=== PATIENT | male | born 1960 | race Caucasian/White ===

== ENCOUNTER 2017-10-19 11:35 | Inpatient (IN) | payer OTHER ==
[~2017-10-19] VITALS: Ht 185.4 cm; Wt 113.2 kg
[~2017-10-19 11:35] MED LIST changes: -AMLO5 PO; -ATOR40TA PO; -LOSA50 PO
[2017-10-19 12:04] LABS: BASOPHILS ABSOLUTE AUTO 0.04 K/mm3 (0.00-0.23); BASOPHILS PERCENT AUTO 1 % (0-2); EOSINOPHILS PERCENT AUTO 5 % (0-6); Hematocrit 48.8 % (37.0-53.0); Hemoglobin 15.9 g/dL (13.5-17.5); IMMATURE GRAN ABSOLUTE AUTO 0.01 K/mm3 (0.00-0.10); IMMATURE GRAN PERCENT AUTO 0 % (0-1); LYMPHOCYTES ABSOLUTE AUTO 1.88 K/mm3 (0.84-5.20); LYMPHOCYTES PERCENT AUTO 33 % (21-46); MONOCYTES ABSOLUTE AUTO 0.58 K/mm3 (0.16-1.47); MONOCYTES PERCENT AUTO 10 % (4-13); Mean Corpuscular HGB 29.8 pg (26.0-34.0); Mean Corpuscular HGB Conc 32.6 g/dL (31.5-36.5); Mean Corpuscular Volume 92 fL (80-100); Mean Platelet Volume 9.1 fL (9.1-12.4); NEUTROPHILS ABSOLUTE AUTO 2.92 K/mm3 (1.96-9.15); NEUTROPHILS PERCENT AUTO 51 % (41-73); Platelet Count 205 K/mm3 (150-400); RDW Coefficient Variation 12.3 % (11.7-14.2); RDW Standard Deviation 41.5 fL (35.1-46.3); Red Blood Cell Count 5.33 M/mm3 (4.30-5.90); White Blood Cell Count 5.73 K/mm3 (4.00-11.30)
[2017-10-19 12:21] LABS: Alanine Aminotransfer (ALT/SGP 52 U/L (12-78); Albumin, Blood 4.2 g/dL (3.4-5.0); Albumin/Globulin Ratio 1.1 (0.8-1.8); Alk Phos 62 U/L (50-136); Anion Gap 8 mmol/L (6-16); Aspartate Aminotrans (AST/SGOT 43 U/L (12-37); Bilirubin, Total 1.6 mg/dL (0.1-1.0); Blood Urea Nitrogen 13 mg/dL (8-24); Bun/Creatinine Ratio 14.1 (12.0-20.0); CO2, Blood 26 mmol/L (21-32); Calcium, Blood 9.3 mg/dL (8.5-10.1); Chloride, Blood 106 mmol/L (98-108); Creatinine, Blood 0.93 mg/dL (0.60-1.20); Globulin, Blood 3.9 g/dL (2.2-4.0); Glomerular Filtration Rate >60 (60-); Glucose, Blood 105 mg/dL (70-99); Sodium, Blood 140 mmol/L (136-145); Total Protein, Blood 8.1 g/dL (6.4-8.2)
[2017-10-19 13:28] LABS: International Normalized Ratio 0.98; Prothrombin Time Results 10.2 Sec (9.7-11.5)
[2017-10-20 03:51] LABS: Hematocrit 44.4 % (37.0-53.0); Hemoglobin 14.3 g/dL (13.5-17.5); Mean Corpuscular HGB 29.7 pg (26.0-34.0); Mean Corpuscular HGB Conc 32.2 g/dL (31.5-36.5); Mean Corpuscular Volume 92 fL (80-100); Mean Platelet Volume 9.3 fL (9.1-12.4); Platelet Count 179 K/mm3 (150-400); RDW Coefficient Variation 12.4 % (11.7-14.2); RDW Standard Deviation 42.5 fL (35.1-46.3); Red Blood Cell Count 4.82 M/mm3 (4.30-5.90); White Blood Cell Count 7.38 K/mm3 (4.00-11.30)
[2017-10-20 04:12] LABS: Albumin, Blood 3.6 g/dL (3.4-5.0); Anion Gap 7 mmol/L (6-16); Blood Urea Nitrogen 14 mg/dL (8-24); Bun/Creatinine Ratio 15.4 (12.0-20.0); CHOL/HDL RATIO 4.9; CO2, Blood 24 mmol/L (21-32); Calcium, Blood 8.7 mg/dL (8.5-10.1); Chloride, Blood 109 mmol/L (98-108); Cholesterol 173 mg/dL (50-200); Creatinine, Blood 0.91 mg/dL (0.60-1.20); Glomerular Filtration Rate >60 (60-); Glucose, Blood 130 mg/dL (70-99); HDL Cholesterol 35 mg/dL (>39); LDL/HDL RATIO 3.2; Low Density Lipoprotein Chol 111 mg/dL (0-110); Magnesium, Blood 2.3 mg/dL (1.6-2.4); Phosphorus, Blood 2.4 mg/dL (2.5-4.9); Sodium, Blood 140 mmol/L (136-145); Triglycerides 137 mg/dL (30-160); Very Low Density Lipoprot Chol 27 mg/dL (6-32)
[2017-10-20] MEDS ORDERED: AMLO5 PO (10:04)
[2017-10-20] MEDS ORDERED: ATOR40TA PO (10:05)
[2017-10-20] MEDS ORDERED: LOSA50 PO (10:05)
== END 2017-10-20 10:25 | disposition home or self-care (01) | DRG 282 ==
LOC: ER 11:35 → ICUE 14:05 → PCU 14:05 → ICUW 15:50 → ICUE 23:00
PROVIDERS: Internal Medicine; Internal Medicine Cardiovascular Disease; Physician Assistant
PROC: 4A023N7 Measurement of Cardiac Sampling and Pressure, Left Heart, Percutaneous Approach (ICD-10-PCS; principal; 2017-10-19)
PROC: B2111ZZ Fluoroscopy of Multiple Coronary Arteries using Low Osmolar Contrast (ICD-10-PCS; 2017-10-19)
PROC: B2151ZZ Fluoroscopy of Left Heart using Low Osmolar Contrast (ICD-10-PCS; 2017-10-19)
DX: I21.4 Non-ST elevation (NSTEMI) myocardial infarction (principal); I11.9 Hypertensive heart disease without heart failure; E78.00 Pure hypercholesterolemia, unspecified; F17.210 Nicotine dependence, cigarettes, uncomplicated
CPT/HCPCS: 36415; 71046; 80053; 80061; 80069; 83036; 83735; 84484; 85025; 85027; 85610; 85730; 86850; 86900; 86901; 93005; 93010; 93306; 93458; 96365; 99152; 99153; 99285; C1769; C1894; J1644; J2250; J2405; J3010; J7030; J7060; Q9967

== ENCOUNTER → 2017-10-19 | Outpatient (CLI) | payer OTHER ==
[~2017-10-19] MED LIST: AMLO5 PO; ATOR40TA PO; Adult Low Dose81 MG PO; BP MED; CYCL10 PO; Garlic1 EACH PO; HYDCHL25 PO; HYDR-86; HYDR1TAB94 PO; Hydrochloroth12.5 MG; IBUP600 PO; LISI20 PO; LOSA50 PO; Lisinopril2.5 MG; NAPR500 PO; PRED20 PO; SULI150 PO; SULINDAC; TRAM50 PO
[2017-10-19 10:48] LABS: BASOPHILS ABSOLUTE AUTO 0.04 K/mm3 (0.00-0.23); BASOPHILS PERCENT AUTO 1 % (0-2); EOSINOPHILS ABSOLUTE AUTO 0.31 K/mm3 (0.00-0.68); EOSINOPHILS PERCENT AUTO 6 % (0-6); Hematocrit 48.5 % (37.0-53.0); Hemoglobin 16.5 g/dL (13.5-17.5); IMMATURE GRAN ABSOLUTE AUTO 0.01 K/mm3 (0.00-0.10); IMMATURE GRAN PERCENT AUTO 0 % (0-1); LYMPHOCYTES ABSOLUTE AUTO 1.65 K/mm3 (0.84-5.20); LYMPHOCYTES PERCENT AUTO 32 % (21-46); MONOCYTES ABSOLUTE AUTO 0.53 K/mm3 (0.16-1.47); MONOCYTES PERCENT AUTO 10 % (4-13); Mean Corpuscular HGB 30.7 pg (26.0-34.0); Mean Corpuscular Volume 90 fL (80-100); Mean Platelet Volume 9.1 fL (9.1-12.4); NEUTROPHILS ABSOLUTE AUTO 2.62 K/mm3 (1.96-9.15); NEUTROPHILS PERCENT AUTO 51 % (41-73); Platelet Count 213 K/mm3 (150-400); RDW Coefficient Variation 12.4 % (11.7-14.2); RDW Standard Deviation 40.7 fL (35.1-46.3); Red Blood Cell Count 5.37 M/mm3 (4.30-5.90); White Blood Cell Count 5.16 K/mm3 (4.00-11.30)
[2017-10-19 11:07] LABS: Alanine Aminotransfer (ALT/SGP 56 U/L (12-78); Albumin, Blood 4.4 g/dL (3.4-5.0); Albumin/Globulin Ratio 1.2 (0.8-1.8); Alk Phos 66 U/L (40-126); Anion Gap 9 mmol/L (6-16); Aspartate Aminotrans (AST/SGOT 40 U/L (12-37); Bilirubin, Total 1.8 mg/dL (0.1-1.0); Blood Urea Nitrogen 14 mg/dL (8-24); Bun/Creatinine Ratio 13.1 (12.0-20.0); CO2, Blood 28 mmol/L (21-32); Calcium, Blood 9.7 mg/dL (8.5-10.1); Chloride, Blood 102 mmol/L (98-108); Creatinine, Blood 1.07 mg/dL (0.60-1.20); Globulin, Blood 3.7 g/dL (2.2-4.0); Glomerular Filtration Rate >60 (60-); Glucose, Blood 116 mg/dL (70-99); Potassium, Blood 3.4 mmol/L (3.5-5.5); Sodium, Blood 139 mmol/L (136-145); Total Protein, Blood 8.1 g/dL (6.4-8.2)
[2017-10-19 11:13] LABS: Troponin I 0.887 ng/mL (0.000-0.040)
== END | disposition home or self-care (01) ==
LOC: LAB EV 10:44
PROVIDERS: Physician Assistant
DX: R07.9 Chest pain, unspecified (principal)
CPT/HCPCS: 80053; 83690; 84484; 85025

== ENCOUNTER → 2020-01-19 | Outpatient (CLI) | payer OTHER ==
[~2020-01-19] MED LIST changes: +AMLO5 PO; +ATOR40TA PO; +LOSA50 PO
[2020-01-19 11:58] LABS: BASOPHILS ABSOLUTE AUTO 0.04 K/mm3 (0.00-0.23); BASOPHILS PERCENT AUTO 1 % (0-2); EOSINOPHILS ABSOLUTE AUTO 0.36 K/mm3 (0.00-0.68); EOSINOPHILS PERCENT AUTO 6 % (0-6); Hemoglobin 15.4 g/dL (13.5-17.5); IMMATURE GRAN ABSOLUTE AUTO 0.02 K/mm3 (0.00-0.10); IMMATURE GRAN PERCENT AUTO 0 % (0-1); LYMPHOCYTES PERCENT AUTO 26 % (21-46); MONOCYTES ABSOLUTE AUTO 0.59 K/mm3 (0.16-1.47); MONOCYTES PERCENT AUTO 9 % (4-13); Mean Corpuscular HGB 30.3 pg (26.0-34.0); Mean Corpuscular HGB Conc 32.1 g/dL (31.5-36.5); Mean Corpuscular Volume 94 fL (80-100); Mean Platelet Volume 9.5 fL (9.1-12.4); NEUTROPHILS ABSOLUTE AUTO 3.75 K/mm3 (1.96-9.15); NEUTROPHILS PERCENT AUTO 58 % (41-73); Platelet Count 249 K/mm3 (150-400); RDW Coefficient Variation 12.3 % (11.7-14.2); RDW Standard Deviation 42.9 fL (35.1-46.3); Red Blood Cell Count 5.09 M/mm3 (4.30-5.90); White Blood Cell Count 6.46 K/mm3 (4.00-11.30)
[2020-01-19 12:14] LABS: Alanine Aminotransfer (ALT/SGP 63 U/L (12-78); Albumin, Blood 4.1 g/dL (3.4-5.0); Albumin/Globulin Ratio 1.1 (0.8-1.8); Alk Phos 72 U/L (50-136); Anion Gap 3 mmol/L (6-16); Aspartate Aminotrans (AST/SGOT 36 U/L (12-37); Bilirubin, Direct 0.2 mg/dL (0.0-0.3); Bilirubin, Total 1.2 mg/dL (0.1-1.0); Blood Urea Nitrogen 12 mg/dL (8-24); CO2, Blood 30 mmol/L (21-32); Chloride, Blood 109 mmol/L (98-108); Creatinine, Blood 0.92 mg/dL (0.60-1.20); Globulin, Blood 3.9 g/dL (2.2-4.0); Glomerular Filtration Rate >60 (60-); Glucose, Blood 102 mg/dL (70-99); Potassium, Blood 4.1 mmol/L (3.5-5.5); Sodium, Blood 142 mmol/L (136-145)
[2020-01-19 12:20] LABS: International Normalized Ratio 0.91; Prothrombin Time Results 9.8 Sec (9.7-11.5)
== END | disposition home or self-care (01) ==
LOC: LAB SHORT 11:10 → LAB 11:10
PROVIDERS: Nurse Practitioner
DX: M79.89 Other specified soft tissue disorders (principal)
CPT/HCPCS: 80053; 82248; 85025; 85610; 85730

== ENCOUNTER 2021-11-06 10:10 | Emergency (ER) | payer OTHER ==
[~2021-11-06] VITALS: Ht 185.4 cm; Wt 106.6 kg
[2021-11-06] MEDS ORDERED: JANTOVEN5 M2 PO (11:01)
== END 2021-11-06 11:56 | disposition home or self-care (01) ==
LOC: ER 10:10
DX: R07.81 Pleurodynia (principal); R07.2 Precordial pain; E11.9 Type 2 diabetes mellitus without complications; I10 Essential (primary) hypertension; Z79.899 Other long term (current) drug therapy
CPT/HCPCS: 71046; 99283-25

== ENCOUNTER 2021-11-25 17:13 | Inpatient (IN) | payer OTHER ==
[~2021-11-25] VITALS: Ht 185.4 cm; Wt 110.0 kg
[~2021-11-25 17:13] MED LIST changes: +JANTOVEN5 M2 PO
[2021-11-25 18:22] LABS: BASOPHILS ABSOLUTE AUTO 0.03 K/mm3 (0.00-0.23); BASOPHILS PERCENT AUTO 0 % (0-2); EOSINOPHILS ABSOLUTE AUTO 0.04 K/mm3 (0.00-0.68); EOSINOPHILS PERCENT AUTO 0 % (0-6); Hematocrit 50.5 % (37.0-53.0); Hemoglobin 16.5 g/dL (13.5-17.5); IMMATURE GRAN ABSOLUTE AUTO 0.02 K/mm3 (0.00-0.10); IMMATURE GRAN PERCENT AUTO 0 % (0-1); LYMPHOCYTES ABSOLUTE AUTO 1.52 K/mm3 (0.84-5.20); LYMPHOCYTES PERCENT AUTO 15 % (21-46); MONOCYTES ABSOLUTE AUTO 1.04 K/mm3 (0.16-1.47); MONOCYTES PERCENT AUTO 10 % (4-13); Mean Corpuscular HGB 30.3 pg (26.0-34.0); Mean Corpuscular HGB Conc 32.7 g/dL (31.5-36.5); Mean Corpuscular Volume 93 fL (80-100); NEUTROPHILS PERCENT AUTO 75 % (41-73); Platelet Count 249 K/mm3 (150-400); RDW Coefficient Variation 12.5 % (11.7-14.2); RDW Standard Deviation 42.8 fL (35.1-46.3); Red Blood Cell Count 5.44 M/mm3 (4.30-5.90); White Blood Cell Count 10.45 K/mm3 (4.00-11.30)
[2021-11-25 18:48] LABS: International Normalized Ratio 2.28; Prothrombin Time Results 22.7 Sec (9.7-11.5)
[2021-11-25 19:03] LABS: Alanine Aminotransfer (ALT/SGP 39 U/L (12-78); Albumin, Blood 4.2 g/dL (3.4-5.0); Albumin/Globulin Ratio 1.1 (0.8-1.8); Alk Phos 72 U/L (50-136); Anion Gap 4 mmol/L (6-16); Aspartate Aminotrans (AST/SGOT 20 U/L (12-37); Bilirubin, Total 1.3 mg/dL (0.1-1.0); Blood Urea Nitrogen 12 mg/dL (8-24); Bun/Creatinine Ratio 14.5 (12.0-20.0); CO2, Blood 24 mmol/L (21-32); Calcium, Blood 9.7 mg/dL (8.5-10.1); Chloride, Blood 109 mmol/L (98-108); Creatinine, Blood 0.83 mg/dL (0.60-1.20); Globulin, Blood 3.8 g/dL (2.2-4.0); Glomerular Filtration Rate >60 (60-); Glucose, Blood 109 mg/dL (70-99); Potassium, Blood 3.8 mmol/L (3.5-5.5); Sodium, Blood 137 mmol/L (136-145)
--- NOTE | 2021-11-25 23:15 | NUR ---
PT ARRIVED TO FLOOR, A/O. PT REP MILD RLQ PAIN, REP PAIN ANGIE AT THIS TIME AFTER MED IN ER. PT REP PAIN X5 DAYS, DENIES N/V/D. PT ORIENTED TO ROOM/CALL LIGHT AND TX PLAN.
[2021-11-26 05:14] LABS: BASOPHILS ABSOLUTE AUTO 0.04 K/mm3 (0.00-0.23); BASOPHILS PERCENT AUTO 0 % (0-2); EOSINOPHILS ABSOLUTE AUTO 0.05 K/mm3 (0.00-0.68); EOSINOPHILS PERCENT AUTO 1 % (0-6); Hematocrit 44.5 % (37.0-53.0); Hemoglobin 14.2 g/dL (13.5-17.5); IMMATURE GRAN ABSOLUTE AUTO 0.02 K/mm3 (0.00-0.10); IMMATURE GRAN PERCENT AUTO 0 % (0-1); LYMPHOCYTES ABSOLUTE AUTO 1.46 K/mm3 (0.84-5.20); LYMPHOCYTES PERCENT AUTO 15 % (21-46); MONOCYTES ABSOLUTE AUTO 1.28 K/mm3 (0.16-1.47); MONOCYTES PERCENT AUTO 13 % (4-13); Mean Corpuscular HGB Conc 31.9 g/dL (31.5-36.5); Mean Corpuscular Volume 94 fL (80-100); Mean Platelet Volume 9.2 fL (9.1-12.4); NEUTROPHILS ABSOLUTE AUTO 6.86 K/mm3 (1.96-9.15); NEUTROPHILS PERCENT AUTO 71 % (41-73); Platelet Count 224 K/mm3 (150-400); RDW Coefficient Variation 12.7 % (11.7-14.2); RDW Standard Deviation 43.9 fL (35.1-46.3); Red Blood Cell Count 4.74 M/mm3 (4.30-5.90); White Blood Cell Count 9.71 K/mm3 (4.00-11.30)
[2021-11-26 05:26] LABS: International Normalized Ratio 2.14; Prothrombin Time Results 21.4 Sec (9.7-11.5)
[2021-11-26 05:47] LABS: Anion Gap 6 mmol/L (6-16); Blood Urea Nitrogen 20 mg/dL (8-24); Bun/Creatinine Ratio 16.7 (12.0-20.0); CO2, Blood 25 mmol/L (21-32); Chloride, Blood 110 mmol/L (98-108); Glomerular Filtration Rate >60 (60-); Glucose, Blood 135 mg/dL (70-99); Sodium, Blood 141 mmol/L (136-145)
--- NOTE | 2021-11-26 06:47 | NUR ---
PT VSS SINCE ARRIVING TO FLOOR. PT A/O, UP INDEP IN ROOM. PT MORE PAINFUL THIS AM, PAIN MGD PER EMAR. PT DENIED N/V, HAS BEEN NPO POST MIDNIGHT. AWAITING SURGICAL PLANS.
--- NOTE | 2021-11-26 13:04 | NUR ---
1235- LUNGS COURSE T/O TO AUSCULTATION. 1255- LUNGS COURSE T/O TO AUSCULATION, BUT MORE AIRFLOW NOTED POST A/D UDN.
--- NOTE | 2021-11-26 13:47 | NUR ---
11/26/21 1347 Stevie Pickens PT ON SCHEDULED ANTIBIOTICS AND RECIEVED PRIOR TO ARRIVAL TO OR.
--- NOTE | 2021-11-26 16:14 | NUR ---
VINICIO EMPTIED OF 40 CC RED FLUID WITH SMALL CLOTS PRESENT
--- NOTE | 2021-11-26 16:19 | NUR ---
PT BASELINE SATS 89-90. CURRENT SATS AT 90-91 ON 2L NC.
--- NOTE | 2021-11-26 16:20 | NUR ---
CORRECTION - PT CURRENTLY ON 4L O2 VIA NC UPON TRANSFER OUT OF PACU TO FLOOR.
--- NOTE | 2021-11-26 18:38 | NUR ---
SHIFT SUMMARY PT SPENT BEGINNING OF SHIFT IN ROOM AWAITING UPDATE FOR SURGERY. PAIN INITIALLY UNCONTROLLED W/ ORDERED MEDICATIONS. PT TO SURGERY IN EARLY AFTERNOON AND RETURNED TO ROOM AT APPROX 1630. PT HAS BEEN RESTING SINCE RETURN TO ROOM. ON 4LPM O2 VIA NC TO MAINTAIN SPO2 IN THE MID 90. PT HAS THREE SURGICAL INCISIONS, ONE WITH A TANYA DRAIN THAT SHOWED SEROSANGINEOUS DRAINAGE. OTHER TWO INCISIONS SHOW NO DRAINAGE. MEDICATIONS GIVEN ORDERED SINCE RETURN FROM SURGERY. PT TOLERATING CLEAR LIQUIDS.
--- NOTE | 2021-11-27 04:23 | NUR ---
PT IS ALERT TO SELF, SITUATION AND PLACE, DISORIENTED TO TIME. SBA TO BSC, IS IMPULSIVE AND DOES NOT USE CALL LIGHT. POST OP DAY 1 FOR LAP APPENDECTOMY, PAIN IS CONTROLLED WITH PRN NORCO AND FENTANYL. PT HAS VINICIO DRAIN THAT IS PUTTING OUT MODERATE SEROSANG DRAINAGE. PT SLEEPS BETWEEN CARES. SLEEPS 7+ HOURS THIS SHIFT. WILL CONTINUE TO MONITOR.
[2021-11-27 05:03] LABS: BASOPHILS ABSOLUTE AUTO 0.01 K/mm3 (0.00-0.23); BASOPHILS PERCENT AUTO 0 % (0-2); EOSINOPHILS PERCENT AUTO 0 % (0-6); Hematocrit 47.8 % (37.0-53.0); Hemoglobin 15.2 g/dL (13.5-17.5); IMMATURE GRAN ABSOLUTE AUTO 0.06 K/mm3 (0.00-0.10); IMMATURE GRAN PERCENT AUTO 0 % (0-1); LYMPHOCYTES ABSOLUTE AUTO 1.05 K/mm3 (0.84-5.20); LYMPHOCYTES PERCENT AUTO 7 % (21-46); MONOCYTES ABSOLUTE AUTO 1.35 K/mm3 (0.16-1.47); MONOCYTES PERCENT AUTO 10 % (4-13); Mean Corpuscular HGB 29.8 pg (26.0-34.0); Mean Corpuscular HGB Conc 31.8 g/dL (31.5-36.5); Mean Corpuscular Volume 94 fL (80-100); Mean Platelet Volume 9.6 fL (9.1-12.4); NEUTROPHILS ABSOLUTE AUTO 11.73 K/mm3 (1.96-9.15); NEUTROPHILS PERCENT AUTO 83 % (41-73); Platelet Count 242 K/mm3 (150-400); RDW Coefficient Variation 12.6 % (11.7-14.2); RDW Standard Deviation 43.6 fL (35.1-46.3)
[2021-11-27 05:16] LABS: International Normalized Ratio 1.27; Prothrombin Time Results 13.1 Sec (9.7-11.5)
[2021-11-27 05:22] LABS: Anion Gap 6 mmol/L (6-16); Blood Urea Nitrogen 17 mg/dL (8-24); Bun/Creatinine Ratio 17.8 (12.0-20.0); CO2, Blood 27 mmol/L (21-32); Calcium, Blood 9.6 mg/dL (8.5-10.1); Chloride, Blood 108 mmol/L (98-108); Creatinine, Blood 0.96 mg/dL (0.60-1.20); Glomerular Filtration Rate >60 (60-); Glucose, Blood 135 mg/dL (70-99); Potassium, Blood 3.9 mmol/L (3.5-5.5); Sodium, Blood 141 mmol/L (136-145)
--- NOTE | 2021-11-27 08:34 | NUR ---
PATIENT IS COMPLAINING OF ABD PAIN. ABD IS SLIGHTLY FIRM. ENCOURAGED PATIENT TO AMBULATE HALLWAYS TO GET MORE GAS MOVING. PATIENT REFUSED AND STATED "IF I LEAVE THIS ROOM I'M LEAVING". PATIENT IS LAYING IN BED TOLERATING PO INTAKE. PATIENT IS VOIDING AND IS INDEP. IN THE ROOM. CALL LIGHT WITHIN REACH.
--- NOTE | 2021-11-27 13:57 | NUR ---
PATIENT HAS WALKED THE HALLWAY AT LEAST ONCE AFTER HIS CAME INTO THE ROOM AND HELPED ENCOURAGE HIM. PATIENT IS VOIDING, TOLERATING PO INTAKE, AND PAIN IS MANAGED. CALL LIGHT WITHIN REACH.
[2021-11-27] MEDS ORDERED: Norco 5-325 Ta1 EACH PO (16:01)
[2021-11-27] MEDS ORDERED: AMOCLA875 PO (16:01)
--- NOTE | 2021-11-27 16:17 | NUR ---
DISCHARGE NOTE: PATIENT AND S/O WERE EDUCATED ON DISCHARGE INSTRUCTIONS. BOTH VERBALIZED UNDERSTANDING OF INSTRUCTIONS. IV WAS WNL AND TAKEN OUT. 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 PAIN IS MANAGED WITH PO PAIN MEDS. PATIENT WAS TOLERATING PO INTAKE AND VOIDING. INDEP. AMBULATIONS WITH S/O. PATIENT IS DRESSED AND HAS PERSONAL ITEMS GATHERED. S/O WHEELCHAIRED PATIENT DOWN TO HER CAR TO TAKE HIM HOME.
== END 2021-11-27 16:20 | disposition home or self-care (01) | DRG 343 ==
LOC: ER 17:13 → SURS 17:14 → ER 17:14 → SURS 17:14
PROVIDERS: Physician Assistant; ADMIT Surgery
PROC: 0WJG4ZZ Inspection of Peritoneal Cavity, Percutaneous Endoscopic Approach (ICD-10-PCS; 2021-11-26)
PROC: 30233L1 Transfusion of Nonautologous Fresh Plasma into Peripheral Vein, Percutaneous Approach (ICD-10-PCS; 2021-11-26)
PROC: 30233K1 Transfusion of Nonautologous Frozen Plasma into Peripheral Vein, Percutaneous Approach (ICD-10-PCS; 2021-11-26)
PROC: 0DTJ0ZZ Resection of Appendix, Open Approach (ICD-10-PCS; principal; 2021-11-26 12:00)
DX: K35.891 Other acute appendicitis without perforation, with gangrene (principal); E78.00 Pure hypercholesterolemia, unspecified; I10 Essential (primary) hypertension; E11.9 Type 2 diabetes mellitus without complications; F31.9 Bipolar disorder, unspecified; Z96.641 Presence of right artificial hip joint; Z96.652 Presence of left artificial knee joint; F17.200 Nicotine dependence, unspecified, uncomplicated; F43.10 Post-traumatic stress disorder, unspecified; I25.2 Old myocardial infarction; Z79.01 Long term (current) use of anticoagulants; Z79.899 Other long term (current) drug therapy; Z86.718 Personal history of other venous thrombosis and embolism; Z95.5 Presence of coronary angioplasty implant and graft
CPT/HCPCS: 36415; 36430; 80048; 80053; 82947; 85025; 85610; 86900; 86901; 88304; 93005; 93010; 94760; 96365; 96375; 99284; A9270; J1100; J1170; J1885; J2250; J2405; J2543; J2704; J3010; J7030; J7120; P9059

== ENCOUNTER 2022-08-08 07:02 | Emergency (ER) | payer OTHER ==
[~2022-08-08] VITALS: Ht 185.4 cm; Wt 104.3 kg
[~2022-08-08 07:02] MED LIST changes: +AMOCLA875 PO; +Norco 5-325 Ta1 EACH PO
[2022-08-08] MEDS ORDERED: TRAM50 PO (09:41)
[2022-08-08] MEDS ORDERED: DOCU100 PO (09:47)
== END 2022-08-08 09:59 | disposition home or self-care (01) ==
LOC: ER 07:02
DX: S30.0XXA Contusion of lower back and pelvis, initial encounter (principal); W10.9XXA Fall (on) (from) unspecified stairs and steps, initial encounter; I10 Essential (primary) hypertension; E11.9 Type 2 diabetes mellitus without complications; F17.210 Nicotine dependence, cigarettes, uncomplicated; Z79.899 Other long term (current) drug therapy; Z79.01 Long term (current) use of anticoagulants
CPT/HCPCS: 72100; 99283-25; A9270

== ENCOUNTER 2024-03-31 09:23 | Day surgery (SDC) | payer OTHER ==
[~2024-03-31] VITALS: Ht 185.4 cm; Wt 103.0 kg
[~2024-03-31 09:23] MED LIST changes: +DOCU100 PO; +Dexamethasone Sod Phos 10 MG/ML 1ML VIAL ONE; +FentaNYL Citrate 50 MCG/ML 2 ML Injection ONE; +Midazolam HCL 1 MG/ML 5MLVIAL ONE; +Midazolam HCl 1MG / ML 2ML Vial ONE; +Rocuronium Bromide 10 MG/ML 5ML Injection IV ONE; +Ropivacaine 0.5% HCL/PF 5 MG/ML 30ML Vial ONE; +propofoL 20 ML IV ONE
[2024-03-31] MEDS ORDERED: Tranexamic Acid 100 ML IV ONE ×2 (09:51→13:24)
[2024-03-31] MEDS ORDERED: OxyCODONE HCL 10 MG TABCR ONE (09:56)
[2024-03-31] MEDS ORDERED: CeFAZolin Sodium 2,000 MG VIAL ONE (09:56)
[2024-03-31] MEDS ORDERED: Acetaminophen 500 MG Tab ONE (09:56)
[2024-03-31] MEDS ORDERED: Lactated Ringer's 1,000 ML IV ONE ×3 (09:57→11:56)
[2024-03-31] MEDS ORDERED: NS 50 ML IV ONE (09:57)
[2024-03-31] MEDS ORDERED: ACET500 (10:17)
[2024-03-31] MEDS ORDERED: Chlorhexidine Mouth Care 15 ML UDC MT ONE (10:20)
[2024-03-31] MEDS ORDERED: OxyCODONE HCL 10 MG TABCR PO SCH (10:20)
[2024-03-31] MEDS ORDERED: Tranexamic Acid 100 ML IV SCH (10:20)
[2024-03-31] MEDS ORDERED: CeFAZolin Sodium 2,000 MG in NS 100 ML IV SCH (10:20)
[2024-03-31] MEDS ORDERED: Ropivacaine 0.5% HCl/Pf 123.125 MG,EPINEPHrine HCL 0.25 MG,Ketorolac Tromethamine 15 MG... INFIL SCH (10:20)
[2024-03-31] MEDS ORDERED: TIZA4 (10:21)
[2024-03-31] MEDS ORDERED: XARELTO20 MG (10:21)
[2024-03-31] MEDS ORDERED: DULCOLAX400 MG/5 M (10:22)
[2024-03-31] MEDS ORDERED: NITR100CA (10:23)
[2024-03-31] MEDS ORDERED: GABA300 (10:24)
[2024-03-31] MEDS ORDERED: FOLI1 (10:24)
[2024-03-31] MEDS ORDERED: Hair, Skin & N1 EACH (10:25)
[2024-03-31] MEDS ORDERED: Acetaminophen 500 MG Tab PO SCH (10:25)
[2024-03-31] MEDS ORDERED: ePHEDrine Sulfate 50 MG/ML 1ML Injection ONE (11:33)
[2024-03-31] MEDS ORDERED: Ondansetron HCl 2 MG / ML 2ML Vial ONE (11:35)
[2024-03-31] MEDS ORDERED: Glycopyrrolate 0.2 MG/ML 5ML VIAL ONE (11:35)
[2024-03-31] MEDS ORDERED: Dexamethasone Sod Phos 10 MG/ML 1ML VIAL ONE (11:35)
--- NOTE | 2024-03-31 11:45 | NUR ---
03/31/24 1145 Andrew Zapata FIRST DOSE OF TXA STARTED IN OR AT 1131 BY JESUS SORIA.
[2024-03-31] MEDS ORDERED: Sugammadex Sodium 200 MG/2ML SDV (100 MG/ML) ONE (11:47)
[2024-03-31] MEDS ORDERED: Ketorolac Tromethamine 30mg Vial ONE (11:48)
--- NOTE | 2024-03-31 13:20 | NUR ---
03/31/24 1320 Kayla Abarca PER ESTELLA MURRAY,[employer] SUPERINTENDENT PATIENT'S BASELINE HR IS IN THE 40'S (CAME INTO PRE-OP WITH HR 47) AND SHE IS OKAY WITH HIS HR BEING IN THE 40'S BUT THAT SHOULD IT DROP BELOW 40 TO CALL HER. PER ESTELLA MURRAY,JESUS PATIENT MAY STILL DISCHARGE FROM FACILITY TO HOME IF HIS HEART RATE IS IN THE 40'S BECAUSE THIS IS HIS BASELINE.
--- NOTE | 2024-03-31 14:13 | NUR ---
03/31/24 1413 ANTOINE KLINE REPORT GIVEN TO ME BY FRANCINE Lemos RN XRAY WAS IN AT 1355.
[2024-03-31 14:34] VITALS: BP 116/77
== END 2024-03-31 15:55 | disposition home or self-care (01) ==
LOC: ORSCSDS 09:23
PROVIDERS: Orthopaedic Surgery
PROC: 0RRJ00Z Replacement of Right Shoulder Joint with Reverse Ball and Socket Synthetic Substitute, Open Approach (ICD-10-PCS; principal; 2024-03-31 11:15)
PROC: 0LS30ZZ Reposition Right Upper Arm Tendon, Open Approach (ICD-10-PCS; principal; 2024-03-31 11:15)
PROC: 0RHJ04Z Insertion of Internal Fixation Device into Right Shoulder Joint, Open Approach (ICD-10-PCS; principal; 2024-03-31 11:15)
DX: M19.011 Primary osteoarthritis, right shoulder (principal); I10 Essential (primary) hypertension; E78.5 Hyperlipidemia, unspecified; J44.9 Chronic obstructive pulmonary disease, unspecified; D68.9 Coagulation defect, unspecified; I25.2 Old myocardial infarction; Z86.718 Personal history of other venous thrombosis and embolism; Z79.01 Long term (current) use of anticoagulants; Z79.899 Other long term (current) drug therapy; F17.210 Nicotine dependence, cigarettes, uncomplicated
CPT/HCPCS: 73030; A9270; C1713; C1776; J0171; J0690; J0735; J1100; J1885; J2250; J2405; J2704; J2795; J3010; J7120

== ENCOUNTER → 2024-06-23 | Outpatient (CLI) | payer OTHER ==
[~2024-06-23] MED LIST changes: +ACET500; +DULCOLAX400 MG/5 M; -Dexamethasone Sod Phos 10 MG/ML 1ML VIAL ONE; +FOLI1; -FentaNYL Citrate 50 MCG/ML 2 ML Injection ONE; +GABA300; +Hair, Skin & N1 EACH; -Midazolam HCL 1 MG/ML 5MLVIAL ONE; -Midazolam HCl 1MG / ML 2ML Vial ONE; +NITR100CA; -Rocuronium Bromide 10 MG/ML 5ML Injection IV ONE; -Ropivacaine 0.5% HCL/PF 5 MG/ML 30ML Vial ONE; +TIZA4; +XARELTO20 MG; -propofoL 20 ML IV ONE
[2024-06-25 15:37] LABS: Stool Occult Bld Immuno 1 Positive (NEGATIVE)
== END ==
LOC: LAB SHORT 16:00 → LAB 16:00
PROVIDERS: Student in an Organized Health Care Education/Training Program
DX: Z12.11 Encounter for screening for malignant neoplasm of colon (principal)
CPT/HCPCS: G0328

== ENCOUNTER → 2025-06-08 | Outpatient (CLI) | payer OTHER ==
[2025-06-13 15:09] LABS: Stool Occult Bld Immuno 1 Negative (NEGATIVE)
== END | disposition home or self-care (01) ==
LOC: LAB SHORT 16:00 → LAB 16:00
PROVIDERS: Student in an Organized Health Care Education/Training Program
DX: Z12.11 Encounter for screening for malignant neoplasm of colon (principal)
CPT/HCPCS: G0328